=== PATIENT | male | born 1985 | race Caucasian/White ===

== ENCOUNTER 2019-05-17 09:54 | Emergency (ER) | payer SELFPAY ==
[2019-05-17 10:00] VITALS: BP 127/67; PULSE 65; RESP 16; TEMP 36.4; O2SAT 100; BMI 24.4
--- NOTE | 2019-05-17 10:00 | ED_ITS ---
Entered by Luis Alberto Mar, acting as scribe for Eleazar Franks DO HPI - General Adult General: Chief complaint: General Medical Stated complaint: UNDER INFLUENCE OF SUBSTANCE/ FALLS Time Seen by Provider: 05/17/19 10:00 History of Present Illness: HPI narrative: 33 yo male presents with substance abuse. Pt states that he was walking down the road when the ambulance picked me up. Pt states that he took some suboxone strip 2 days ago. Pt states that he fell down. Patient denies any specific problems he does admit to using meth in the past. He denies any pain denies any chest pain or difficulty breathing. He does appear to be under the influence. MD complaint: substance abuse Associated symptoms: Deny chest pain, dyspnea, malaise, nausea, rash or vomiting Review of Systems Const: Denies: fever, chills, body aches, change in appetite, fatigue or m alaise ENMT: Denies: throat pain, ear pain, nasal discharge or nasal congestion Card: Denies: chest pain, edema, shortness of breath on exertion or shortness of breath when lying down Resp: Denies: shortness of breath, productive cough or non-productive cough GI: Denies: abdominal pain, nausea, vomiting, vomiting blood, coffee grounds in vomit, diarrhea, constipation, bloating, blood in stool or black tarry stool : Denies: flank pain, painful urination, urinary frequency or urinary urgency Skin/Breast: Denies: rash or itching PFS ED PFSH: Social History Smoking and tobacco status: current every day smoker Physical Exam Const: COMMON NORMALS: no apparent distress GENERAL APPEARANCE: cooperative and lethargic (pt will wake up when he is asked questions) ORIENTATION/CONSCIOUSNESS: Yes lethargic (pt will wake up when he is asked questions) HENMT: COMMON NORMALS: normocephalic, head/scalp atraumatic, hearing grossly normal bilaterally, external ears normal, EAC's normal, TM's normal bilaterally, nasal mucous membranes and turbinates normal, moist oral mucous membranes and oropharynx normal HEAD & SCALP: normocephalic and atraumatic NOSE: nasal mucous membranes and turbinates normal EXTERNAL EAR: Yes external ears normal EXTERNAL AUDITORY CANAL: EAC's normal TYMPANIC MEMBRANE: TM's normal bilaterally Eye: COMMON NORMALS: PERRL, EOMs intact bilaterally, conjunctivae normal and no scleral icterus CONJUNCTIVA: Yes conjunctivae normal PUPIL: Yes PERRL Neck/C-Spine: COMMON NORMALS: full ROM, no lymphadenopathy, supple and no JVD Lymph: LYMPHATIC: no lymphadenopathy noted and no lymphedema noted Resp: COMMON NORMALS: normal respiratory effort, no retractions, no use of accessory muscles and clear to auscultation bilaterally AUSCULTATION: clear to auscultation bilaterally Cardio: COMMON NORMALS: no JVD, regular rate, regular rhythm and no murmurs RATE: regular rate RHYTHM: regular rhythm GI: COMMON NORMALS: soft to palpation and no hepatosplenomegaly AUSCULTATION: Yes normoactive bowel sounds PALPATION: Yes soft, No tender, No guarding and Yes no hepatosplenomegaly Extremity: COMMON NORMALS: normal to inspection, normal capillary refill, no clubbing, cyanosis or edema, no calf tenderness and no pedal edema Neuro: SENSORIUM/ORIENTATION: Yes lethargic (pt will wake up when he is asked questions) Skin: COMMON NORMALS: no rashes or lesions noted GENERAL SKIN EXAM: no rashes or lesions noted Course ED course: Exam and laboratory tests unremarkable patient did test positive for methamphetamine use. Discussed findings with patient encourage fluid intake offered referral to surgery which patient declines. Encouraged to stop meth use. Vital Signs: Vital signs: Vital Signs Temperature 97.6 F 05/17/19 10:00 Pulse Rate 70 05/17/19 11:20 Respiratory Rate 17 05/17/19 11:20 Blood Pressure 122/75 05/17/19 11:20 Pulse Oximetry 97 05/17/19 11:20 MDM - General Adult Lab Data: Labs: Lab Results 05/17/19 05/17/19 05/17/19 Range/Units 10:30 10:30 10:33 WBC (4.0-10.0) 10^3/ uL RBC (4.1-5.3) 10^6/u L Hgb (11.7-16.6) g/dL Hct (42.0-52.0) % MCV (80-94) fL MCH (28.0-34.0) pg MCHC (30.0-36.0) g/dL RDW (12.1-15.1) % Plt Count (130-400) 10^3/c mm MPV (7.4-10.4) fL Neut % (Auto) % Lymph % (Auto) % Storey % (Auto) % Eos % (Auto) % Baso % (Auto) % Neut # (Auto) (1.8-7.7) 10^3/u L Lymph # (Auto) (0.8-4.8) 10^3/u L Storey # (Auto) (0.2-0.9) 10^3/u L Eos # (Auto) (0.0-0.8) 10^3/u L Baso # (Auto) (0.0-0.1) 10^3/u L Nucleated RBC % (a uto) % Nucleated RBCs # /100WBC Sodium (136-145) mmol/L Potassium (3.5-5.1) mmol/L Chloride (98-107) mmol/L Carbon Dioxide (22-29) mmol/L Anion Gap (5-19) BUN (6-20) mg/dL Creatinine (0.7-1.2) mg/dL GFR Calculation (90-130) mL/min Glucose (65-115) mg/dL Calcium (8.5-10.5) mg/dL Total Bilirubin (0.15-1.2) mg/dL AST (0-40) U/L ALT (0-41) U/L Alkaline Phosphata se (40-130) IU/L Ammonia 25 (16-60) umol/L Total Protein (6.6-8.7) g/dL Albumin (3.5-5.2) g/dL Globulin (1.3-4.6) g/dL Lipase (13-60) U/L Urine Color Straw (Yellow) Urine Appearance Clear (CLEAR) Urine pH 5.0 (5-7) Ur Specific Gravit y 1.025 (1.005-1.030) Urine Protein Neg (Negative) Urine Glucose (UA) Norm (Normal) Urine Ketones Negative (Negative) Urine Blood Neg (Negative) Urine Nitrate Negative (Negative) Urine Bilirubin Neg (NEGATIVE) Urine Urobilinogen Norm (Negative) mg/dL Ur Leukocyte Brenda ase Negative (Negative) Urine Opiates Scre en Negative (Negative) ng/mL Ur Barbiturates Sc reen Negative (Negative) ng/mL Ur Phencyclidine S crn Negative (Negative) ng/mL Ur Amphetamines Sc reen Positive H (Negative) ng/mL U Benzodiazepines Scrn Negative (Negative) ng/mL Urine Cocaine Scre en Negative (Negative) ng/mL U Marijuana (THC) Screen Negative (Negative) ng/mL 05/17/19 05/17/19 Range/Units 10:33 10:33 WBC 12.3 H (4.0-10.0) 10^3/ uL RBC 5.16 (4.1-5.3) 10^6/u L Hgb 14.0 (11.7-16.6) g/dL Hct 44.0 (42.0-52.0) % MCV 85.3 (80-94) fL MCH 27.1 L (28.0-34.0) pg MCHC 31.8 (30.0-36.0) g/dL RDW 12.3 (12.1-15.1) % Plt Count 396 (130-400) 10^3/c mm MPV 8.1 (7.4-10.4) fL Neut % (Auto) 68.0 % Lymph % (Auto) 21.0 % Storey % (Auto) 7.6 % Eos % (Auto) 2.0 % Baso % (Auto) 0.7 % Neut # (Auto) 8.4 H (1.8-7.7) 10^3/u L Lymph # (Auto) 2.6 (0.8-4.8) 10^3/u L Storey # (Auto) 0.9 (0.2-0.9) 10^3/u L Eos # (Auto) 0.3 (0.0-0.8) 10^3/u L Baso # (Auto) 0.1 (0.0-0.1) 10^3/u L Nucleated RBC % (a uto) 0 % Nucleated RBCs # 0.0 /100WBC Sodium 137 (136-145) mmol/L Potassium 3.6 (3.5-5.1) mmol/L Chloride 98 (98-107) mmol/L Carbon Dioxide 30 H (22-29) mmol/L Anion Gap 12.6 (5-19) BUN 23 H (6-20) mg/dL Creatinine 0.8 (0.7-1.2) mg/dL GFR Calculation 110.0 (90-130) mL/min Glucose 110 (65-115) mg/dL Calcium 9.6 (8.5-10.5) mg/dL Total Bilirubin 0.4 (0.15-1.2) mg/dL AST 28 (0-40) U/L ALT 23 (0-41) U/L Alkaline Phosphata se 142 H (40-130) IU/L Ammonia (16-60) umol/L Total Protein 8.3 (6.6-8.7) g/dL Albumin 3.8 (3.5-5.2) g/dL Globulin 4.5 (1.3-4.6) g/dL Lipase 17 (13-60) U/L Urine Color (Yellow) Urine Appearance (CLEAR) Urine pH (5-7) Ur Specific Gravit y (1.005-1.030) Urine Protein (Negative) Urine Glucose (UA) (Normal) Urine Ketones (Negative) Urine Blood (Negative) Urine Nitrate (Negative) Urine Bilirubin (NEGATIVE) Urine Urobilinogen (Negative) mg/dL Ur Leukocyte Brenda ase (Negative) Urine Opiates Scre en (Negative) ng/mL Ur Barbiturates Sc reen (Negative) ng/mL Ur Phencyclidine S crn (Negative) ng/mL Ur Amphetamines Sc reen (Negative) ng/mL U Benzodiazepines Scrn (Negative) ng/mL Urine Cocaine Scre en (Negative) ng/mL U Marijuana (THC) Screen (Negative) ng/mL Discharge Plan Discharge Patient Disposition: Home, Self-Care Clinical Impression: Methamphetamine abuse Condition: Stable Prescriptions: No Action Unable to Assess RF: 0 Discharge Orders: Discharge Order (Routine); Ordered 05/17/19 Ordered By: Eleazar Franks Discharge Diet: Usual diet Discharge Activity: Resume usual activity Activity Restrictions/Additional Instructions: Avoid methamphetamine Discharge Date/Time: 05/17/19 11:20 Coding Level of Care Code ED Gandy Dancer for g Fwd Exam Comprehensive The documentation recorded by the Zaid de la paz Kialy, accurately reflects the service I personally performed and the decisions made by Golden perez Curtis L, DO May 17, 2019 09:54
--- NOTE | 2019-05-17 10:17 | CT_ITS ---
WS: [id number] CT HEAD NONCONTRAST HISTORY: fall/ LOC TECHNIQUE: Contiguous axial imaging performed through the brain in 2.5 mm imaging. Bone and soft tiss ue windows. Sagittal and coronal reformats reviewed. All CT scans at [facility] use at ast one of these dose optimization techniques: automated exposure control; mA and/or kV adjustment pe r patient size (includes targeted exams where dose is matched to clinical indication); or iterative r econstruction. DLP: 683.05 mGy.cm COMPARISON: 06/13/2007 No acute intracranial hemorrhage, midline shift or mass effect. No atrophy or prior infarcts or herniation. Ventricles: Normal size with no hydrocephalus. No inferior displacement of cerebellar tonsils. Paranasal sinuses: Near complete opacification of the RIGHT frontal sinus. There is extension of the soft tissue sinus disease to the frontal ethmoid recess. Mild mucoperiosteal thickening in the maxill danilo sinuses. Mastoid air cells: Well pneumatized. Calvarium and scalp: Skull is intact with no soft tissue edema or swelling. CT/CT head wo con* 60064 IMPRESSION: 1. No acute intracranial hemorrhage or edema. 2. Extensive soft tissue in the sinuses is probably due to chronic sinusitis. No skull fracture identified.
[2019-05-17 10:31] VITALS: O2SAT 100
[2019-05-17 10:35] LABS: Add Urine Microscopic? NO
[2019-05-17 10:39] LABS: Basophils # 0.1 10^3/uL (0.0-0.1); Basophils % 0.7 %; Eosinophils # 0.3 10^3/uL (0.0-0.8); Lymphocytes # 2.6 10^3/uL (0.8-4.8); Mean Corpuscular HGB Conc 31.8 g/dL (30.0-36.0); Mean Corpuscular Hemoglobin 27.1 pg (28.0-34.0); Mean Corpuscular Volume 85.3 fL (80-94); Mean Platelet Volume 8.1 fL (7.4-10.4); Monocytes # 0.9 10^3/uL (0.2-0.9); Monocytes % 7.6 %; Neutrophils # 8.4 10^3/uL (1.8-7.7); Nucleated Red Blood Cells % 0 %; Platelet Count 396 10^3/cmm (130-400); Red Blood Count 5.16 10^6/uL (4.1-5.3); Red Cell Distribution Width 12.3 % (12.1-15.1); White Blood Count 12.3 10^3/uL (4.0-10.0)
[2019-05-17 10:40] LABS: Bilirubin Urine Neg (NEGATIVE); Blood Urine Neg (Negative); Glucose Urine UA Norm (Normal); Ketones Urine Negative (Negative); Leukocyte Esterase Urine Negative (Negative); Nitrate Urine Negative (Negative); Protein Urine Neg (Negative); Specific Gravity, Urine 1.025 (1.005-1.030); Urine Appearance Clear (CLEAR); Urine Color Straw (Yellow); Urobilinogen Urine Norm (Negative)
[2019-05-17 10:55] LABS: Alanine Aminotransferase 23 U/L (0-41); Albumin Level 3.8 g/dL (3.5-5.2); Alkaline Phosphatase 142 IU/L (40-130); Anion Gap 12.6 (5-19); Aspartate Amino Transferase 28 U/L (0-40); Blood Urea Nitrogen 23 mg/dL (6-20); Calcium 9.6 mg/dL (8.5-10.5); Carbon Dioxide 30 mmol/L (22-29); Chloride 98 mmol/L (98-107); Globulin 4.5 g/dL (1.3-4.6); Glucose 110 mg/dL (65-115); Lipase 17 U/L (13-60); Potassium 3.6 mmol/L (3.5-5.1); Sodium 137 mmol/L (136-145); Total Bilirubin 0.4 mg/dL (0.15-1.2); Total Protein 8.3 g/dL (6.6-8.7)
[2019-05-17 10:56] LABS: Barbiturates Screen Urine Negative (Negative); Benzodiazepines Screen Urine Negative (Negative); Cocaine Screen Urine Negative (Negative); Opiate Screen Urine Negative (Negative); PCP Screen Urine Negative (Negative); THC Screen Urine Negative (Negative)
[2019-05-17 10:56] LABS: Ammonia 25 umol/L (16-60)
[2019-05-17 10:59] LABS: Amphetamines Screen Urine Positive (Negative)
[2019-05-17 11:20] VITALS: BP 122/75; PULSE 70; RESP 17; O2SAT 97
== END 2019-05-17 11:20 | disposition home or self-care (01) ==
PROVIDERS: Emergency Provider Family Medicine
DX: F15.10 Other stimulant abuse, uncomplicated (principal); F17.200 Nicotine dependence, unspecified, uncomplicated
CPT/HCPCS: 36415; 70450; 80053; 80307; 81003; 82140; 83690; 85025; 99282; 99283; A9270

== ENCOUNTER 2020-07-21 14:07 | Emergency (ER) | payer SELFPAY ==
[2020-07-21 14:12] VITALS: BP 117/75; PULSE 100; RESP 18; TEMP 36.8; O2SAT 100; BMI 23.7
--- NOTE | 2020-07-21 15:49 | ED_ITS ---
Documented by User: MED Rosas 07/21/20 17:23 HPI - Extremity Problem General: Chief complaint: Extremity Injury, Lower Stated complaint: L LEG PAIN ONSET LAST NIGHT Time Seen by Provider: 07/21/20 15:39 History of Present Illness: HPI Narrative: Patient reports yesterday he was walking beside a drainage ditch and fell into it. Patient injured his left upper leg. No obvious deformity is noted. Swelling is noted to the leg. Patient has difficulty bearing weight. MD Complaint: extremity pain Location: left Quality: stabbing Relieving factors: nothing Exacerbating factors: range of motion Associated symptoms: Reports no associated symptoms Review of Systems General: Reports: 10 or more systems reviewed and unremarkable except in HPI and below Musc: Reports: other (left upper leg) PFS ED PFSH: Social History Smoking and tobacco status: current every day smoker Physical Exam Const: COMMON NORMALS: no acute distress and patient oriented x3 GENERAL APPEARANCE: cooperative HENMT: COMMON NORMALS: normocephalic and Normal external nose present HEAD & SCALP: normal to inspection and normocephalic NOSE: Normal external nose present Eye: GENERAL EYE: appearance normal, both eyes and all related structures Neck/C-Spine: COMMON NORMALS: full ROM Chest: COMMONS NORMALS: normal inspection of the chest Resp: COMMON NORMALS: normal respiratory effort EFFORT & INSPECTION: Yes able to speak in complete sentences Cardio: COMMON NORMALS: regular rate and regular rhythm RATE: regular rate RHYTHM: regular rhythm GI: COMMON NORMALS: non-tender Back/Pelvis: COMMON NORMALS: thoracic and lumbar spine normal to inspection Extremity: NARRATIVE EXTREMITY EXAM: Tenderness with mild swelling noted to the distal left femur/proximal knee area. Neuro: COMMON NORMALS: patient oriented x3 and moves all extremities Psych: COMMON NORMALS: mental status grossly normal and cooperative Skin: NARRATIVE SKIN EXAM: Abrasion to the right eyebrow. Course ED course: 172, reviewed with Yunier Rosario PA-C, he agreed to assume care of patient on my end of shift. We are awaiting x-rays. Patient is resting well. Vital Signs: Vital signs: Vital Signs Temperature 98 F 07/21/20 19:40 Pulse Rate 100 07/21/20 14:12 Respiratory Rate 18 05/03/21 19:40 Blood Pressure 130/68 05/03/21 19:40 Pulse Oximetry 96 07/21/20 19:40 Discharge Plan Discharge Patient Disposition: Home Clinical Impression: Effusion of knee joint, left Fracture of tibial plateau, closed Qualifiers: Encounter type: initial encounter Laterality: left Qualified Code(s): S82.142A - Displaced bicondylar fracture of left tibia, initial encounter for closed fracture Condition: Stable Prescriptions: No Action No Known Home Medications RF: 0 Discharge Orders: Discharge ED (Routine); Ordered 07/21/20 Ordered By: Yunier Rosario Discharge Diet: Regular Discharge Activity: Limit activity as instructed and Use walker/crutches as instructed Patient Instructions: Tramadol (By mouth), Fractures - Knee, Knee Effusion (ED) Activity Restrictions/Additional Instructions: Follow-up with medical provider as directed. Case management will be contacting you in the next several days to set up an appointment with orthopedic doctor. Keep splint on and dry and no weightbearing on left leg and use crutches to ambulate. Take medications as prescribed. Return to the ER or your medical provider if condition worsens. Please read and understand discharge instructions. Thank you for choosing [facility] for your healthcare needs today. Please realize this is an emergency room and that we are providing you with a medical screening exam and this may not be complete and all inclusive of all the testing and or work up that you may need to determine your ailment or severity of your illness. It is very important that you follow up as instructed or that you return to the Emergency Department should you have concerns or if your condition changes or worsens in any way. Sign Out Sign Out Data: Patient Sign Out occurred on 07/21/20 at 17:29. Patient's care was discussed, and care was transferred from Carlos Baker to GENE Michael. Sign Out Comment: awaiting xrays, Last updated by Carlos Baker FNP at 07/21/20 17:23 Coding Level of Care Code ED Associate Chemist for Chg Fwd Exam Comprehensive Documented by User: GENE Michael 07/22/20 02:02 HPI - Extremity Problem General: Chief complaint: Extremity Injury, Lower Stated complaint: L LEG PAIN ONSET LAST NIGHT Time Seen by Provider: 07/21/20 15:39 [facility] ED PFSH: Social History Smoking and tobacco status: current every day smoker Course Vital Signs: Vital signs: Vital Signs Temperature 98 F 07/21/20 19:40 Pulse Rate 100 07/21/20 14:12 Respiratory Rate 18 07/21/20 19:40 Blood Pressure 130/68 07/21/20 19:40 Pulse Oximetry 96 07/21/20 19:40 MDM - Extremity (Nontraumatic) MDM Narrative: Medical decision making narrative: Patient is a 34-year-old male comes to the ED with left knee pain after fall. I took over patient care after 5 PM and jie baker NP performed the initial history and physical exam and I agree with his findings. X-rays of left femur showed no acute fractures of the femur but knee joint effusion noted and possible tibial plateau fracture noted. Patient refused to get a long leg splint, but was agreeable to get a knee immobilizer. Patient has crutches I told him to not do any weightbearing on left leg. I placed an order with case management for patient to be referred to orthopedic doctor. Patient was discharged home and told case packer and sealer will contact him in the next several days to set up an appointment with Ortho. He was given a written prescription for tramadol for pain. Return to ED precautions given. Patient understood and agreed with plan. Imaging Data^: Xray Ortho: Attestation: I personally reviewed and interpreted this imaging study as follows: Radiologist's impression: [address] [place] [address] XRay Report Signed Patient: Nathan Willett Unit #: [id number] : [id number] Acc t#:[id number] Age/Sex: 34 / M ADM Date: 07/21/20 Loc: ER Room/Bed: Attending Dr: Ordering Provider/Ordering MD: Carlos Baker NP Date of Service: 07/21/20 Procedure(s): XR femur LT min 2V* [id number] Accession Number(s): [id number] Report Number: [id number] PROCEDURE INFORMATION: Exam: XR Left Femur Exam date and time: 07/21/2020 4:13 PM Age: 34 years old Clinical indication: Pain; Hip and knee; Left; Additional info: Injury TECHNIQUE: Imaging protocol: XR Left femur. Views: 2 views. COMPARISON: No relevant prior studies available. FINDINGS: Bones/joints: No fractures of the left femur. Left hip joint alignment is normal. There is a lucency of the tibial plateau lateral to the tibial spine. Left knee joint effusion suspected. Soft tissues: Unremarkable. XR/XR femur LT min 2V* [id number] IMPRESSION: 1. Normal left femur. 2. Cannot exclude tibial plateau fracture and associated knee joint effusion. Dictated By: Eran Wilson Signed By: Eran Wilson Signed Date/Time: 07/21/201756 DD/ 54 Discharge Plan Discharge Patient Disposition: Home Clinical Impression: Effusion of knee joint, left Fracture of tibial plateau, closed Qualifiers: Encounter type: initial encounter Laterality: left Qualified Code(s): S82.142A - Displaced bicondylar fracture of left tibia, initial encounter for closed fracture Condition: Stable Prescriptions: No Action No Known Home Medications RF: 0 Discharge Orders: Discharge ED (Routine); Ordered 07/21/20 Ordered By: Yunier Rosario Discharge Diet: Regular Discharge Activity: Limit activity as instructed and Use walker/crutches as instructed Patient Instructions: Tramadol (By mouth), Fractures - Knee, Knee Effusion (ED) Activity Restrictions/Additional Instructions: Follow-up with medical provider as directed. Case management will be contacting you in the next several days to set up an appointment with orthopedic doctor. Keep splint on and dry and no weightbearing on left leg and use crutches to ambulate. Take medications as prescribed. Return to the ER or your medical provider if condition worsens. Please read and understand discharge instructions. Thank you for choosing [facility] for your healthcare needs today. Please realize this is an emergency room and that we are providing you with a medical screening exam and this may not be complete and all inclusive of all the testing and or work up that you may need to determine your ailment or severity of your illness. It is very important that you follow up as instructed or that you return to the Emergency Department should you have concerns or if your condition changes or worsens in any way. Sign Out Sign Out Data: Patient Sign Out occurred on 07/21/20 at 17:29. Patient's care was discussed, and care was transferred from Carlos Baker to GENE Michael. Sign Out Comment: awaiting xrays, Last updated by Carlos Baekr, MED at 07/21/20 17:23 Coding Level of Care Code ED Associate Chemist for Chg Fwd Exam Comprehensive
[2020-07-21] MEDS: HYDROcodone-acetaminophen 7.5-325 mg Tablet 1 TAB PO ×2 (15:53→19:34)
[2020-07-21 19:40] VITALS: BP 130/68; RESP 18; TEMP 36.6; O2SAT 96
--- NOTE | 2020-07-21 20:05 | PC.NURSE ---
19:20, upon attempting to apply long leg splint to left leg, pt declines and states he doesn't want one. S/w provider who ordered splint, talked with pt, it was decided between pt and provider that a knee immobilizer would be applied instead. This was applied. Neurovascular checks WNL after immobilizer applied. Crutch training given. Dc'd pt to waiting room where he states he will get home/place he is staying without any further assistance.
--- NOTE | 2020-07-22 09:20 | DCPLANNER ---
auto care center manager had message to schedule a follow up appointment for patient with ortho. auto care center manager called the ortho clinic, spoke with Gale, gave clinic patients information. auto care center manager was told that patients information would be printed and reviewed. Clinic will call patient with appointment information.
--- NOTE | 2020-07-30 08:31 | DCPLANNER ---
Patient has a follow up appointment scheduled Thursday, July 30, 2020 at 2:[address] Duque at [facility]. Clinic will call patient with appointment information.
--- NOTE | 2020-10-08 07:45 | DCPLANNER ---
Patient had a follow up appointment scheduled for 07.30.[address] Duque - patient did not attend appointment.
== END 2020-07-21 20:30 | disposition home or self-care (01) ==
PROVIDERS: Emergency Provider Physician Assistant
DX: S82.142A Displaced bicondylar fracture of left tibia, initial encounter for closed fracture (principal); M25.462 Effusion, left knee; F17.210 Nicotine dependence, cigarettes, uncomplicated; W17.81XA Fall down embankment (hill), initial encounter
CPT/HCPCS: 29530; 73552; 99283; 99291

== ENCOUNTER 2020-08-21 17:15 | Emergency (ER) | payer SELFPAY ==
[2020-08-21 17:16] VITALS: BP 113/87; PULSE 103; RESP 18; TEMP 36.4; O2SAT 94; BMI 21.7
--- NOTE | 2020-08-21 17:18 | XRR_ITS ---
PROCEDURE INFORMATION: Exam: XR Chest Exam date and time: 08/21/2020 5:26 PM Age: 34 years old Clinical indication: Cough and dyspnea; Additional info: Dyspnea/cough TECHNIQUE: Imaging protocol: XR of the chest. Views: 1 view. COMPARISON: No relevant prior studies available. FINDINGS: Tubes, catheters and devices: Metallic BB projects over the lower right chest. Lungs: Discoid atelectasis in the left base. The lungs are otherwise clear. Pleural spaces: Unremarkable. No pleural effusion. No pneumothorax. Heart/Mediastinum: Unremarkable. No cardiomegaly. Diaphragm: Mild elevation of the left diaphragm. Bones/joints: Old left 7th rib fracture. XR/XR chest 1V portable [id number] IMPRESSION: No acute findings.
--- NOTE | 2020-08-21 17:24 | W.ED.OVERDOS ---
Documented by User: Eleazar Franks DO 08/22/20 10:45 HPI - Overdose General: Chief Complaint: Overdose Stated Complaint: OVERDOSE Time Seen by Provider: 08/21/20 17:17 History of Present Illness: HPI Narrative: 34-year-old male presents emergency room after being found down in the field. He was unresponsive was given Narcan in the field. He did admit to using methamphetamine earlier today. he is also complaining of continued left knee pain and swelling in early July he was seen for knee pain. MD complaint: accidental overdose Onset (ago): hour(s) Timing confirmed by: other (bystander) Review of Systems Const: Denies: fever(s), chills, body aches, change in appetite, fatigue or malaise ENMT: Denies: throat pain, ear or mastoid pain, nasal discharge or nasal congestion Card: Denies: chest pain, edema, dyspnea on exertion or orthopnea Resp: Denies: dyspnea, productive cough or non-productive cough GI: Denies: abdominal pain, nausea, vomiting, hematemesis, coffee ground emesis, diarrhea, constipation, bloating, hematochezia or melena : Denies: flank pain, dysuria, urinary frequency or urinary urgency PFS ED PFSH: Social History Smoking and tobacco status: current every day smoker Physical Exam Const: GENERAL APPEARANCE: cooperative and comfortable ORIENTATION/CONSCIOUSNESS: Yes awake, Yes oriented to person, Yes oriented to place and Yes oriented to time HENMT: COMMON NORMALS: normocephalic, atraumatic, hearing grossly normal bilaterally and external ears normal HEAD & SCALP: normocephalic and atraumatic EXTERNAL EAR: Yes external ears normal Neck/C-Spine: COMMON NORMALS: no JVD Resp: COMMON NORMALS: normal respiratory effort, No retractions, No use of accessory muscles and clear to auscultation bilaterally AUSCULTATION: clear to auscultation bilaterally Cardio: COMMON NORMALS: no JVD, regular rate, regular rhythm and No murmurs present (Cardio) RATE: regular rate RHYTHM: regular rhythm GI: COMMON NORMALS: Soft to palpation and No hepatosplenomegaly present AUSCULTATION: Yes normoactive bowel sounds PALPATION: Yes Soft to palpation, No Tenderness to palpation present (GI), No Guarding due to palpation present (GI) and Yes No hepatosplenomegaly present Extremity: COMMON NORMALS: normal to inspection, capillary refill normal, no clubbing, cyanosis or edema, no calf tenderness and no pedal edema Neuro: SENSORIUM/ORIENTATION: Yes oriented to person, Yes oriented to place and Yes oriented to time Skin: COMMON NORMALS: no rashes or lesions noted GENERAL SKIN EXAM: no rashes or lesions noted Course Vital Signs: Vital signs: Vital Signs Temperature 97.6 F 08/21/20 17:16 Pulse Rate 85 08/21/20 19:42 Respiratory Rate 18 08/21/20 19:42 Blood Pressure 120/88 08/21/20 19:42 Pulse Oximetry 100 08/21/20 19:42 MDM - Overdose MDM Narrative: Medical decision making narrative: Labs and x-ray pending care turned over to Dr. Foster at change of shift. Patient had a previous visit in early July there is a question of a tibial plateau fracture unfortunately he did not follow-up. Reviewing the ER note from that visit the provider was aware and informed the patient of the concern on the x-ray. He was given crutches and a knee immobilizer and referred for orthopedic follow-up. The patient did not complete the follow-up. X-rays being repeated deformity of both of his knees complaining of pain in both knees Dr. Foster to follow-up on that see his note from diagnosis disposition. Lab Data: Labs: Lab Results 08/21/20 08/21/20 Range/Units 18:00 18:00 WBC 9.1 (4.0-10.0) 10^3/ uL RBC 4.94 (4.1-5.3) 10^6/u L Hgb 13.4 (11.7-16.6) g/dL Hct 43.7 (42.0-52.0) % MCV 88.5 (80-94) fL MCH 27.1 L (28.0-34.0) pg MCHC 30.7 (30.0-36.0) g/dL RDW 13.3 (12.1-15.1) % Plt Count 377 (130-400) 10^3/c mm MPV 8.2 (7.4-10.4) fL Neut % (Auto) 63.8 % Lymph % (Auto) 22.3 % [place] % (Auto) 8.6 % Eos % (Auto) 3.4 % Baso % (Auto) 0.4 % Neut # (Auto) 5.77 (1.8-7.7) 10^3/u L Lymph # (Auto) 2.0 (0.8-4.8) 10^3/u L [place] # (Auto) 0.8 (0.2-0.9) 10^3/u L Eos # (Auto) 0.3 (0.0-0.8) 10^3/u L Baso # (Auto) 0.0 (0.0-0.1) 10^3/u L Nucleated RBC % (a uto) 0 % Nucleated RBCs # 0.0 /100WBC Sodium 140 (136-145) mmol/L Potassium 4.1 (3.5-5.1) mmol/L Chloride 101 (98-107) mmol/L Carbon Dioxide 31 H (22-29) mmol/L Anion Gap 12.1 (5-19) BUN 17 (6-20) mg/dL Creatinine 1.1 (0.7-1.2) mg/dL GFR Calculation 75.7 L (90-130) mL/min Glucose 110 (65-115) mg/dL Calculated Osmolal ity 292 (285-295) mOsm/k g Calcium 9.1 (8.5-10.5) mg/dL Total Bilirubin 0.2 (0.15-1.2) mg/dL AST 32 (0-40) U/L ALT 36 (0-41) U/L Alkaline Phosphata se 180 H (40-130) IU/L Total Protein 8.8 H (6.6-8.7) g/dL Albumin 4.0 (3.5-5.2) g/dL Globulin 4.8 H (1.3-4.6) g/dL Discharge Plan Discharge Patient Disposition: Home Clinical Impression: Drug overdose Qualifiers: Encounter type: initial encounter Injury intent: accidental or unintentional Qualified Code(s): T50.901A - Poisoning by unspecified drugs, medicaments and biological substances, accidental (unintentional), initial encounter Fracture of proximal end of left tibia Qualifiers: Encounter type: initial encounter Fracture type: closed Fracture morphology: other fracture Qualified Code(s): S82.192A - Other fracture of upper end of left tibia, initial encounter for closed fracture Condition: Stable Prescriptions: No Action No Known Home Medications RF: 0 Discharge Orders: Discharge ED (Routine); Ordered 08/21/20 Ordered By: Enoc Foster Referrals: Cedrick Gonzales DO [Physician] - 1-3 days Discharge Diet: Advance as tolerated Discharge Activity: Resume usual activity Patient Instructions: Leg Fracture (ED), Methamphetamine Abuse (ED) Coding Level of Care Code ED [facility] Intern for Chg Fwd Exam Comprehensive Documented by User: Enoc Foster MD 08/21/20 19:53 HPI - Overdose General: Chief Complaint: Overdose Stated Complaint: OVERDOSE Time Seen by Provider: 08/21/20 17:17 PFSH ED PFSH: Social History Smoking and tobacco status: current every day smoker Course Vital Signs: Vital signs: Vital Signs Temperature 97.6 F 08/21/20 17:16 Pulse Rate 85 08/21/20 19:42 Respiratory Rate 18 08/21/20 19:42 Blood Pressure 120/88 08/21/20 19:42 Pulse Oximetry 100 08/21/20 19:42 MDM - Overdose MDM Narrative: Medical decision making narrative: Patient presents here with an overdose likely from fentanyl laced methamphetamine. He has been well-appearing here after Narcan. Observed patient here for 2 and half hours and has been awake and alert and is requesting discharge. His blood work here is all normal. X-ray of his knee does show a fracture through the tibial spine he had a fall a month ago likely the cause. Did place him in immobilizer and crutches. He is to follow-up with orthopedics. Lab Data: Labs: Lab Results 08/21/20 08/21/20 Range/Units 18:00 18:00 WBC 9.1 (4.0-10.0) 10^3/ uL RBC 4.94 (4.1-5.3) 10^6/u L Hgb 13.4 (11.7-16.6) g/dL Hct 43.7 (42.0-52.0) % MCV 88.5 (80-94) fL MCH 27.1 L (28.0-34.0) pg MCHC 30.7 (30.0-36.0) g/dL RDW 13.3 (12.1-15.1) % Plt Count 377 (130-400) 10^3/c mm MPV 8.2 (7.4-10.4) fL Neut % (Auto) 63.8 % Lymph % (Auto) 22.3 % [place] % (Auto) 8.6 % Eos % (Auto) 3.4 % Baso % (Auto) 0.4 % Neut # (Auto) 5.77 (1.8-7.7) 10^3/u L Lymph # (Auto) 2.0 (0.8-4.8) 10^3/u L [place] # (Auto) 0.8 (0.2-0.9) 10^3/u L Eos # (Auto) 0.3 (0.0-0.8) 10^3/u L Baso # (Auto) 0.0 (0.0-0.1) 10^3/u L Nucleated RBC % (a uto) 0 % Nucleated RBCs # 0.0 /100WBC Sodium 140 (136-145) mmol/L Potassium 4.1 (3.5-5.1) mmol/L Chloride 101 (98-107) mmol/L Carbon Dioxide 31 H (22-29) mmol/L Anion Gap 12.1 (5-19) BUN 17 (6-20) mg/dL Creatinine 1.1 (0.7-1.2) mg/dL GFR Calculation 75.7 L (90-130) mL/min Glucose 110 (65-115) mg/dL Calculated Osmolal ity 292 (285-295) mOsm/k g Calcium 9.1 (8.5-10.5) mg/dL Total Bilirubin 0.2 (0.15-1.2) mg/dL AST 32 (0-40) U/L ALT 36 (0-41) U/L Alkaline Phosphata se 180 H (40-130) IU/L Total Protein 8.8 H (6.6-8.7) g/dL Albumin 4.0 (3.5-5.2) g/dL Globulin 4.8 H (1.3-4.6) g/dL Imaging Data^: Xray Ortho: Attestation: I personally reviewed and interpreted this imaging study as follows: My impression: [address] [address] XRay Report Signed Patient: Nathan Willett JR Unit #: [id number] : [id number] Age/Sex: 34 / M ADM Date: 08/21/20 Loc: ER Room/Bed: Attending Dr: Ordering Provider/Ordering MD: Eleazar Franks DO Date of Service: 08/21/20 Procedure(s): XR knee LT 3V* [id number] Accession Number(s): [id number] Report Number: [id number] PROCEDURE INFORMATION: Exam: XR Left Knee Exam date and time: 08/21/2020 6:07 PM Age: 34 years old Clinical indication: Pain; Knee; Left TECHNIQUE: Imaging protocol: XR Left knee. Views: 3 views. COMPARISON: CR XR femur LT min 2V* [id number] 07/21/2020 4:58 PM FINDINGS: Bones/joints: Knee effusion. Mildly displaced fracture through the tibial spines. The other bones appear intact and in normal alignment. Chronic tendon or soft tissue calcifications along the medial femur and posterior tibia. Soft tissues: Normal. XR/XR knee LT 3V* [id number] IMPRESSION: 1. Mildly displaced fracture through the tibial spines. Further evaluation with CT imaging is suggested. 2. Knee effusion. Discharge Plan Discharge Patient Disposition: Home Clinical Impression: Drug overdose Qualifiers: Encounter type: initial encounter Injury intent: accidental or unintentional Qualified Code(s): T50.901A - Poisoning by unspecified drugs, medicaments and biological substances, accidental (unintentional), initial encounter Fracture of proximal end of left tibia Qualifiers: Encounter type: initial encounter Fracture type: closed Fracture morphology: other fracture Qualified Code(s): S82.192A - Other fracture of upper end of left tibia, initial encounter for closed fracture Condition: Stable Prescriptions: No Action No Known Home Medications RF: 0 Discharge Orders: Discharge ED (Routine); Ordered 08/21/20 Ordered By: Enoc Foster Referrals: Cedrick Gonzales DO [Physician] - 1-3 days Discharge Diet: Advance as tolerated Discharge Activity: Resume usual activity Patient Instructions: Leg Fracture (ED), Methamphetamine Abuse (ED) Coding Level of Care Code ED [facility] Intern for Chg Fwd Exam Comprehensive
--- NOTE | 2020-08-21 18:03 | XRR_ITS ---
PROCEDURE INFORMATION: Exam: XR Right Knee Exam date and time: 08/21/2020 6:07 PM Age: 34 years old Clinical indication: Pain; Knee; Left TECHNIQUE: Imaging protocol: XR Right knee. Views: 3 views. COMPARISON: No relevant prior studies available. FINDINGS: Bones/joints: Normal. Soft tissues: Normal. XR/XR knee RT 3V* [id number] IMPRESSION: No acute findings.
--- NOTE | 2020-08-21 18:03 | XRR_ITS ---
PROCEDURE INFORMATION: Exam: XR Left Knee Exam date and time: 08/21/2020 6:07 PM Age: 34 years old Clinical indication: Pain; Knee; Left TECHNIQUE: Imaging protocol: XR Left knee. Views: 3 views. COMPARISON: CR XR femur LT min 2V* [id number] 07/21/2020 4:58 PM FINDINGS: Bones/joints: Knee effusion. Mildly displaced fracture through the tibial spines. The other bones appear intact and in normal alignment. Chronic tendon or soft tissue calcifications along the medial femur and posterior tibia. Soft tissues: Normal. XR/XR knee LT 3V* [id number] IMPRESSION: 1. Mildly displaced fracture through the tibial spines. Further evaluation with CT imaging is suggested. 2. Knee effusion.
[2020-08-21 18:08] LABS: Basophils % 0.4 %; Eosinophils # 0.3 10^3/uL (0.0-0.8); Eosinophils % 3.4 %; Hematocrit 43.7 % (42.0-52.0); Hemoglobin 13.4 g/dL (11.7-16.6); Lymphocytes % 22.3 %; Mean Corpuscular HGB Conc 30.7 g/dL (30.0-36.0); Mean Corpuscular Hemoglobin 27.1 pg (28.0-34.0); Mean Corpuscular Volume 88.5 fL (80-94); Mean Platelet Volume 8.2 fL (7.4-10.4); Monocytes # 0.8 10^3/uL (0.2-0.9); Monocytes % 8.6 %; Neutrophils # 5.77 10^3/uL (1.8-7.7); Neutrophils % 63.8 %; Nucleated Red Blood Cells % 0 %; Platelet Count 377 10^3/cmm (130-400); Red Blood Count 4.94 10^6/uL (4.1-5.3); Red Cell Distribution Width 13.3 % (12.1-15.1); White Blood Count 9.1 10^3/uL (4.0-10.0)
[2020-08-21 18:45] LABS: Alanine Aminotransferase 36 U/L (0-41); Alkaline Phosphatase 180 IU/L (40-130); Anion Gap 12.1 (5-19); Aspartate Amino Transferase 32 U/L (0-40); Blood Urea Nitrogen 17 mg/dL (6-20); Calcium 9.1 mg/dL (8.5-10.5); Carbon Dioxide 31 mmol/L (22-29); Chloride 101 mmol/L (98-107); Creatinine Clr Calc Pharmacy 99.2596; Globulin 4.8 g/dL (1.3-4.6); Glomerular Filtration Rate 75.7 mL/min (90-130); Glucose 110 mg/dL (65-115); Osmolality Calculated 292 mOsm/kg (285-295); Potassium 4.1 mmol/L (3.5-5.1); Sodium 140 mmol/L (136-145); Total Bilirubin 0.2 mg/dL (0.15-1.2); Total Protein 8.8 g/dL (6.6-8.7)
[2020-08-21 19:42] VITALS: BP 120/88; PULSE 85; RESP 18; O2SAT 100
--- NOTE | 2020-08-22 09:08 | DCPLANNER ---
credit control manager had message to schedule a follow up appointment for patient with ortho, for a tibial fracture. credit control manager called the ortho clinic, spoke with Marina, gave clinic patients information. credit control manager was told that patients information will be printed and reviewed. Clinic will call patient with appointment information.
--- NOTE | 2020-08-28 10:13 | DCPLANNER ---
product manager medical device called ortho clinic to confirm if a follow up appointment had been scheduled for patient. product manager medical device spoke with Gale, was told that clinic was unable to contact patient. Clinic spoke with patients mother, and she stated that she was not aware of where patient is at this time.
== END 2020-08-21 19:57 | disposition home or self-care (01) ==
PROVIDERS: Family Medicine; Emergency Provider Emergency Medicine
DX: T50.901A Poisoning by unspecified drugs, medicaments and biological substances, accidental (unintentional), initial encounter (principal); S82.192A Other fracture of upper end of left tibia, initial encounter for closed fracture; F17.210 Nicotine dependence, cigarettes, uncomplicated; X58.XXXA Exposure to other specified factors, initial encounter
CPT/HCPCS: 29530; 71045; 73562; 80053; 85025; 99283; E0114

== ENCOUNTER 2022-03-07 15:21 | Emergency (ER) | payer SELFPAY ==
[2022-03-07 15:23] VITALS: BP 127/82; PULSE 89; RESP 15; TEMP 36.6; O2SAT 97; BMI 23.0
--- NOTE | 2022-03-07 15:23 | W.ED.SKABFB ---
HPI - Skin/Abscess/Foreign Bdy General: Chief complaint: Extremity Problem,Nontraumatic Stated complaint: BILATERAL LEG SKIN INFECTION Time Seen by Provider: 03/07/22 15:22 History of Present Illness: Mr. Willett is a 36-year-old male with significant past medical history of hepatitis C presenting to the emergency department via law enforcement for concern of right leg skin findings. He reports number of month history of intermittent symptoms however is now had worsening itchiness, flakiness, and bleeding. He feels generally unwell but denies specific signs of systemic illness. Intensity symptoms moderate, becomes markedly painful with palpation and picking. He is concerned that there is a parasite under the skin. No other specific changes in health, exacerbating, or alleviating factors identified. Onset (ago): month(s) Tetanus up to date: yes Location: LLE and RLE Severity: moderate Pain Consistency: constant Exacerbating factors: palpation and movement Context: none Associated symptoms: Reports other Review of Systems General: Reports: 10 or more systems reviewed and unremarkable except in HPI and below PFSH ED PFSH: Medical History (Updated 03/07/22 @ 16:22 by Nathan Vazquez MD) Hepatitis C Social History Smoking and tobacco status: current every day smoker Physical Exam Const: COMMON NORMALS: alert GENERAL APPEARANCE: cooperative and well developed HENMT: COMMON NORMALS: normocephalic and atraumatic HEAD & SCALP: normocephalic and atraumatic Eye: COMMON NORMALS: conjunctivae normal CONJUNCTIVA: Yes conjunctivae normal SCLERA: sclerae normal Neck/C-Spine: COMMON NORMALS: supple GENERAL: Yes trachea midline Resp: COMMON NORMALS: normal respiratory effort EFFORT & INSPECTION: Yes able to speak in complete sentences Cardio: COMMON NORMALS: regular rate and regular rhythm RATE: regular rate RHYTHM: regular rhythm GI: COMMON NORMALS: Soft to palpation PALPATION: Yes Soft to palpation and No Tenderness to palpation present (GI) PERCUSSION: normal to percussion Extremity: GENERAL: Yes normal exam except as noted and No edema Neuro: COMMON NORMALS: moves all extremities SENSORIUM/ORIENTATION: Yes alert and No Orientation impaired Psych: COMMON NORMALS: mental status grossly normal and Normal thought process present THOUGHT PROCESS: Normal thought process present Skin: NARRATIVE SKIN EXAM: Bilateral shins with flaky scales and areas of superimposed worsening erythema, distal CMS intact, right ruiz has area of venous bleeding and scabbing. Course Vital Signs: Vital signs: Vital Signs Temperature 97.8 F 03/07/22 15:23 Pulse Rate 61 03/07/22 17:55 Respiratory Rate 15 03/07/22 17:55 Blood Pressure 117/78 03/07/22 17:55 Pulse Oximetry 96 03/07/22 17:55 Oxygen Delivery Me thod 03/07/22 16:30 MDM - Skin/Abscess/Foreign Bdy Medicial Decision Making 36-year-old male presenting with bilateral ruiz abnormalities and increased pain. Distal CMS is intact. Scaley/flaking lesions bilaterally more prominent on the right with scabbing and bleeding. ?Psoriasis type lesions. Patient denies picking at lesions however I believe that the bleeding is most likely from picking. Labs with no leukocytosis, lactate and metabolic panel are normal. Bilateral x-rays without underlying bony abnormality. Antibiotic dose and analgesia administered. Satisfactory for outpatient treatment with topical hydrocortisone and antibiotic. The results of ED evaluation were discussed with the patient including prescriptions and/or symptomatic cares (if applicable) including appropriate and responsible use, followup plan, and return precautions. The patient verbalized understanding and felt safe for discharge. Medical Records I reviewed the patient's medical records. Lab Data I reviewed the patient's lab results. 03/07/22 15:48 03/07/22 15:48 Radiology Impressions Tibia/Fibula X-Ray 03/07/22 15:37 IMPRESSION: No acute findings. Laboratory Results WBC 8.3 10^3/uL (4.0-10.0) 03/07/22 15:48 RBC 4.90 10^6/uL (4.1-5.3) 03/07/22 15:48 Hgb 13.4 g/dL (11.7-16.6) 03/07/22 15:48 Hct 41.8 % (42.0-52.0) L 03/07/22 15:48 MCV 85.3 fl (80-94) 03/07/22 15:48 MCH 27.3 pg (28.0-34.0) L 03/07/22 15:48 MCHC 32.1 g/dL (30.0-36.0) 03/07/22 15:48 RDW 14.4 % (12.1-15.1) 03/07/22 15:48 Plt Count 410 10^3/cmm (130-400) H 03/07/22 15:48 MPV 8.7 fL (7.4-10.4) 03/07/22 15:48 Neut % (Auto) 52.9 % 03/07/22 15:48 Lymph % (Auto) 27.1 % 03/07/22 15:48 [place] % (Auto) 13.2 % 03/07/22 15:48 Eos % (Auto) 5.6 % 03/07/22 15:48 Baso % (Auto) 0.7 % 03/07/22 15:48 Neut # (Auto) 4.38 10^3/uL (1.8-7.7) 03/07/22 15:48 Lymph # (Auto) 2.2 10^3/uL (0.8-4.8) 03/07/22 15:48 [place] # (Auto) 1.1 10^3/uL (0.2-0.9) H 03/07/22 15:48 Eos # (Auto) 0.5 10^3/uL (0.0-0.8) 03/07/22 15:48 Baso # (Auto) 0.1 10^3/uL (0.0-0.1) 03/07/22 15:48 Nucleated RBC % (auto) 0 % 03/07/22 15:48 Nucleated RBCs # 0.0 /100WBC 03/07/22 15:48 Sodium 137 mmol/L (136-145) 03/07/22 15:48 Potassium 4.3 mmol/L (3.5-5.1) 03/07/22 15:48 Chloride 100 mmol/L (98-107) 03/07/22 15:48 Carbon Dioxide 29 mmol/L (22-29) 03/07/22 15:48 Anion Gap 12.3 (5-19) 03/07/22 15:48 BUN 20 mg/dL (6-20) 03/07/22 15:48 Creatinine 0.8 mg/dL (0.7-1.2) 03/07/22 15:48 GFR Calculation 108.2 mL/min (90-130) 03/07/22 15:48 Glucose 87 mg/dL (65-115) 03/07/22 15:48 Calculated Osmolality 286 mOsm/kg (285-295) 03/07/22 15:48 Lactic Acid 0.9 mmol/L (0.5-2.2) 03/07/22 15:48 Calcium 9.5 mg/dL (8.5-10.5) 03/07/22 15:48 Total Bilirubin 0.4 mg/dL (0.15-1.2) 03/07/22 15:48 AST 17 U/L (0-40) 03/07/22 15:48 ALT 16 U/L (0-41) 03/07/22 15:48 Alkaline Phosphatase 129 U/L (40-130) 03/07/22 15:48 Total Protein 8.1 g/dL (6.6-8.7) 03/07/22 15:48 Albumin 3.8 g/dL (3.5-5.2) 03/07/22 15:48 Globulin 4.3 g/dL (1.3-4.6) 03/07/22 15:48 Discharge Plan Discharge Patient Disposition: Home Clinical Impression: Cellulitis, Psoriasis and similar disorder Condition: Stable Prescriptions: New clindamycin HCl 300 mg capsule 300 mg PO TID 10 Days Qty: 30 0RF ondansetron 4 mg tablet,disintegrating 4 mg PO Q8H PRN (Reason: nausea and vomiting) Qty: 15 0RF hydrocortisone 1 % cream 1 applic topical QID PRN (Reason: rash) Qty: 453.6 0RF Tylenol 325 mg capsule 650 mg PO Q6H PRN (Reason: pain) 7 Days Qty: 30 0RF ibuprofen 600 mg tablet 600 mg PO Q6H PRN (Reason: pain) Qty: 30 0RF Discharge Orders: Discharge ED (Routine); Ordered 03/07/22 Ordered By: Nathan Vazquez Discharge Diet: Usual diet Discharge Activity: Increase activity as tolerated Patient Instructions: Cellulitis (ED), Rash - Nonspecific Activity Restrictions/Additional Instructions: Thank you for visiting the emergency department. You were seen and evaluated for skin concern. I believe that you have an underlying skin condition that has superimposed infection. This will be treated with topical steroids and antibiotic pills. Please have reevaluation within 1 week by a medical professional. If rash persists you may require follow-up with dermatology. Return to the emergency department for fevers, worsening symptoms, or anything else that you are concerned about and feel needs emergency department evaluation. Coding Level of Care Code ED [employer] for Aaliyah Fwd Exam Comprehensive
--- NOTE | 2022-03-07 15:37 | XRR_ITS ---
PROCEDURE INFORMATION: Exam: XR Right Tibia and Fibula Exam date and time: 03/07/2022 3:50 PM Age: 36 years old Clinical indication: Other: Skin lesions on anterior of leg; Additional info: Skin lesions, pain TECHNIQUE: Imaging protocol: Radiologic exam of the Right tibia and fibula. Views: 2 views. COMPARISON: No relevant prior studies available. FINDINGS: Bones/joints: Negative for acute bony abnormality. There is a metallic density in the midshaft medial tibia cortex measuring 3 mm x 2 mm. This finding appears to be chronic Soft tissues: Normal. XR/XR tibia fibula RT 2V [id number] IMPRESSION: No acute bone abnormality. Small metallic density in the central medial tibia
--- NOTE | 2022-03-07 15:37 | XRR_ITS ---
PROCEDURE INFORMATION: Exam: XR Left Tibia and Fibula Exam date and time: 03/07/2022 3:50 PM Age: 36 years old Clinical indication: Other: Skin lesions on lower leg; Additional info: Skin lesions, pain TECHNIQUE: Imaging protocol: Radiologic exam of the Left tibia and fibula. Views: 2 views. COMPARISON: No relevant prior studies available. FINDINGS: Bones/joints: Negative for acute bony abnormality Soft tissues: Normal. XR/XR tibia fibula LT 2V [id number] IMPRESSION: No acute findings.
[2022-03-07 16:00] LABS: Basophils # 0.1 10^3/uL (0.0-0.1); Basophils % 0.7 %; Eosinophils # 0.5 10^3/uL (0.0-0.8); Eosinophils % 5.6 %; Hematocrit 41.8 % (42.0-52.0); Hemoglobin 13.4 g/dL (11.7-16.6); Lymphocytes # 2.2 10^3/uL (0.8-4.8); Lymphocytes % 27.1 %; Mean Corpuscular HGB Conc 32.1 g/dL (30.0-36.0); Mean Corpuscular Hemoglobin 27.3 pg (28.0-34.0); Mean Corpuscular Volume 85.3 fl (80-94); Mean Platelet Volume 8.7 fL (7.4-10.4); Monocytes # 1.1 10^3/uL (0.2-0.9); Monocytes % 13.2 %; Neutrophils # 4.38 10^3/uL (1.8-7.7); Neutrophils % 52.9 %; Nucleated Red Blood Cells % 0 %; Platelet Count 410 10^3/cmm (130-400); Red Cell Distribution Width 14.4 % (12.1-15.1); White Blood Count 8.3 10^3/uL (4.0-10.0)
[2022-03-07 16:07] VITALS: BP 127/82; PULSE 86; RESP 19; O2SAT 97
[2022-03-07] MEDS: ketorolac 30 mg/mL INJ IM (16:09)
[2022-03-07 16:16] LABS: Lactic Sepsis W/Reflex 0.9 mmol/L (0.5-2.2)
[2022-03-07 16:17] LABS: Alanine Aminotransferase 16 U/L (0-41); Albumin Level 3.8 g/dL (3.5-5.2); Alkaline Phosphatase 129 U/L (40-130); Anion Gap 12.3 (5-19); Aspartate Amino Transferase 17 U/L (0-40); Blood Urea Nitrogen 20 mg/dL (6-20); Calcium 9.5 mg/dL (8.5-10.5); Carbon Dioxide 29 mmol/L (22-29); Chloride 100 mmol/L (98-107); Globulin 4.3 g/dL (1.3-4.6); Glomerular Filtration Rate 108.2 mL/min (90-130); Glucose 87 mg/dL (65-115); Osmolality Calculated 286 mOsm/kg (285-295); Potassium 4.3 mmol/L (3.5-5.1); Sodium 137 mmol/L (136-145); Total Bilirubin 0.4 mg/dL (0.15-1.2); Total Protein 8.1 g/dL (6.6-8.7)
[2022-03-07 16:30] VITALS: BP 120/78; PULSE 83; RESP 20; O2SAT 98
[2022-03-07] MEDS: clindamycin 150 mg Capsule 300 MG PO (17:17)
[2022-03-07 17:55] VITALS: BP 117/78; PULSE 61; RESP 15; O2SAT 96
== END 2022-03-07 17:55 | disposition home or self-care (01) ==
PROVIDERS: Emergency Provider Emergency Medicine
DX: L40.9 Psoriasis, unspecified (principal); L03.116 Cellulitis of left lower limb; L03.115 Cellulitis of right lower limb; Z86.19 Personal history of other infectious and parasitic diseases; F17.210 Nicotine dependence, cigarettes, uncomplicated
CPT/HCPCS: 36415; 73590; 80053; 83605; 85025; 87040; 96372; 99284; J1885